=== PATIENT | female | born 1960 | race Caucasian/White ===

== ENCOUNTER 2016-12-19 08:55 | Emergency (ER) | payer OTHER ==
[~2016-12-19] VITALS: Ht 172.7 cm; Wt 87.5 kg
[~2016-12-19 08:55] MED LIST: ALBUTEROL17 GM INH; FLEXERIL10 MG PO; LORTAB 5/500 TA1 TA2 PO; NAPROSYN500 MG PO; NORCO 5/325 TAB1 TAB PO; ORUDIS75 M1 DOB; ZITHROMAX1 G/PKT PO
== END 2016-12-19 09:35 | disposition home or self-care (01) ==
LOC: CFTX 08:55 → CED 08:55 → CFTX 09:24
DX: L02.01 Cutaneous abscess of face (principal); M25.521 Pain in right elbow; E11.9 Type 2 diabetes mellitus without complications; J44.9 Chronic obstructive pulmonary disease, unspecified; F17.210 Nicotine dependence, cigarettes, uncomplicated; Z88.2 Allergy status to sulfonamides
CPT/HCPCS: 99283

== ENCOUNTER 2017-01-17 10:33 | Emergency (ER) | payer OTHER ==
[~2017-01-17] VITALS: Ht 172.7 cm; Wt 83.9 kg
--- NOTE | ~2017-01-17 | CR63 ---
[facility] A Service [facility] RADIOLOGY TEXT RESULTS PATIENT: DEANDRE AWAD LOCATION: [facility] : 60 UNIT #: [id number] AGE: [address]: Ania Painter SEX: F ORDER DR: [id number] [address] [address] [id number] MR#: [id number] Acc #: [id number] NAME: DEANDRE AWAD. : 1960 SEX: F STUDY DATE/TIME: 01/17/2017 12:00 UNIT: [facility] ROOM: STUDY DESCRIPTION: CR Chest 2 View Attending Physician: Ania Painter Pa-C Ordering Physician: Ramon Gusman M.D. Primary Care Physician: Primary Care Physician No MEDICAL IMAGING REPORT This report is preliminary unless electronic signature is present EXAM Chest 2 views 01/17/2017 1200 hours HISTORY 56-year-old with complaint of cough, congestion for 1 week. History of uterine and renal cancer, history of smoking and hypertension. Not on medication. COMPARISON 03/08/2016 FINDINGS Upright PA and lateral views of the chest demonstrate normal heart size with stable tortuous aorta. Hilar contours are normal. Lungs are well expanded and clear of acute densities. Benign calcified changes are stable. IMPRESSION Stable benign calcified granulomatous changes. No acute cardiopulmonary findings. Dictated by... Deisy Back M.D. THIS IS AN ELECTRONICALLY VERIFIED REPORT Deisy Back M.D. at 01/17/2017 7:05 PM ETHEL/martha TD: 01/17/2017 16:44 JOB #: [id number] MEDICAL IMAGING REPORT [facility] A Service [facility] RADIOLOGY TEXT RESULTS PATIENT: DEANDRE AWAD LOCATION: [facility] : 60 UNIT #: [id number] AGE: [address]: Ania Painter SEX: F ORDER DR: Page 1 of 1 COPY
== END 2017-01-17 14:21 | disposition home or self-care (01) ==
LOC: CED 10:33 → CFTX 10:33
DX: J06.9 Acute upper respiratory infection, unspecified (principal); E11.9 Type 2 diabetes mellitus without complications; J44.9 Chronic obstructive pulmonary disease, unspecified; J45.909 Unspecified asthma, uncomplicated; F17.200 Nicotine dependence, unspecified, uncomplicated; Z90.710 Acquired absence of both cervix and uterus; Z88.2 Allergy status to sulfonamides; Z88.8 Allergy status to other drugs, medicaments and biological substances
CPT/HCPCS: 71020; 99284

== ENCOUNTER 2017-01-29 16:17 | Emergency (ER) | payer OTHER ==
[~2017-01-29] VITALS: Ht 172.7 cm; Wt 83.9 kg
== END 2017-01-29 17:55 | disposition home or self-care (01) ==
LOC: CFTX 16:17 → CED 16:17 → CFTX 17:11
DX: S61.213A Laceration without foreign body of left middle finger without damage to nail, initial encounter (principal); E11.9 Type 2 diabetes mellitus without complications; J44.9 Chronic obstructive pulmonary disease, unspecified; W26.8XXA Contact with other sharp object(s), not elsewhere classified, initial encounter; Y92.009 Unspecified place in unspecified non-institutional (private) residence as the place of occurrence of the external cause
CPT/HCPCS: 12001; 99283